=== PATIENT | female | born 1995 | race African-American/Black ===

== ENCOUNTER 2019-01-05 11:57 | Outpatient (CLI) | payer OTHER ==
[~2019-01-05] VITALS: Ht 165.1 cm; Wt 93.2 kg
[2019-01-05 12:11] VITALS: BP 132/63
[2019-01-05] MEDS ORDERED: MAPA500T2 PO (12:21)
[2019-01-05] MEDS ORDERED: ACETAMINOPHEN 325 MG/10.15 ML UDC PO ONE (12:45)
[2019-01-05 13:22] LABS: APPEARANCE, URINE CLEAR (CLEAR); BACTERIA, URINE AUTO 1+ (NEGATIVE); BILIRUBIN, URINE AUTO NEGATIVE (NEGATIVE); BLOOD, URINE BLOOD NEGATIVE (NEGATIVE); COLOR, URINE YELLOW (YELLOW); GLUCOSE, URINE (UA) AUTO 1+ mg/dL (NEGATIVE); KETONE, URINE AUTO 2+ mg/dL (NEGATIVE); LEUKOCYTE ESTERASE, URINE AUTO NEGATIVE (NEGATIVE); MUCUS, URINE SMALL (NEGATIVE); NITRITE, URINE AUTO NEGATIVE (NEGATIVE); PROTEIN, URINE AUTO NEGATIVE (NEGATIVE); RBC, URINE AUTO 1 /HPF (0-3); SPECIFIC GRAVITY URINE AUTO 1.009 (1.002-1.035); SQUAMOUS EPITHELIAL CELL UR AU 6 /HPF (0-6); WBC, URINE AUTO 2 /HPF (0-3)
[2019-01-05] MEDS ORDERED: LACTATED RINGER'S 1000 ML IV STA (14:11)
[2019-01-05 14:44] VITALS: BP 118/56
[2019-01-05 16:00] VITALS: BP 121/57
--- NOTE | 2019-01-05 17:18 | IPNPDOC ---
Obstetrical Progress Note Date of Service Jan 05, 2019 Subjective 23yo at 22+5 weeks presents to LND triage c/o JORDAN, back pain, and emesis. Pt reports that she was seen in clinic yesterday for similar symptoms and was told to come to LND if symptom persisted today. Pt reports +FM, denies LOF/VB/CTX. Pt denies dysuria, abnormal vaginal discharge. Pt states that back pain started four days ago and is primarily in lower back. She denies CVA tenderness. Pt states that her JORDAN started yesterday, went away, but has now been constant today. She states that she drinks "a lot of water" and feels as if she is adequately hydrated. Her urine in the clinic yesterday was orange with 3+ ketones, which was indicative of dehydration. Pt states she tried to take tylenol last night, but gagged when she tried to swallow them and had an episode of emesis. She denies any other nausea or episodes of emesis. Pt denies visual changes or RUQ pain. Objective Vital Signs Date Time Temp Pulse Resp B/P (MAP) Pulse Ox O2 Delivery O2 Flow Rate FiO2 01/05/19 14:44 99 118/56 (76) 01/05/19 12:11 97.3 20 99 Tocometer Contractions: No Assessment and Plan Additional Comments O: VSS, BP WNL FHR 160s, reduced to 150s after 1L hydration, WNL No CTX present UA: 2+ ketones, trace leukocytes UC: pending *Pt received 1L LR IVF and 650mg Tylenol (liquid) A: Dehydration Pt felt better and JORDAN resolved with tylenol and hydration Reassuring status P: Discussed normal discomorts of and encouraged pt to use maternity belt to help with back pain. Tylenol PRN; can use children's liquid tylenol if she cannot tolerate tabs Encouraged hydration of 3-4 liters of water/day PTL/danger/return precautions reviewed ANGEL JACOBO CNM Jan 05, 2019 17:18
== END 2019-01-05 16:30 | disposition home or self-care (01) ==
LOC: M LDO 11:57
PROVIDERS: ATTEND Registered Nurse Maternal Newborn
DX: O26.892 Other specified pregnancy related conditions, second trimester (principal); R51 Headache; M54.9 Dorsalgia, unspecified; O99.282 Endocrine, nutritional and metabolic diseases complicating pregnancy, second trimester; E86.0 Dehydration; O21.2 Late vomiting of pregnancy; Z3A.22 22 weeks gestation of pregnancy
CPT/HCPCS: 81001; 87086; G0378; G0463

== ENCOUNTER 2019-05-14 13:47 | Inpatient (IN) | payer OTHER ==
[~2019-05-14] VITALS: Ht 165.1 cm; Wt 107.0 kg
[2019-05-14] VITALS (7 sets, daily range): BP systolic 126–167; BP diastolic 60–98
[~2019-05-14 13:47] MED LIST: MAPA500T2 PO
[2019-05-14] MEDS: LR 1,000 ML IV SCH ×2 (13:51→21:51)
[2019-05-14] MEDS ORDERED: PRENTAB9 PO (14:22)
[2019-05-14] MEDS ORDERED: FERR325T3 PO (14:22)
[2019-05-14 15:05] LABS: BASO % 0.2 % (0.0-1.0); EOS % 0.2 % (0.0-3.0); HEMATOCRIT 31.2 % (36.0-47.0); HEMOGLOBIN 10.2 g/dl (12.0-15.5); LYMPH # 1.8 10^3/uL (1.5-5.0); LYMPH % 18.3 % (24.0-44.0); MEAN CORPUSCULAR HEMOGLOBIN 24.9 pg (27.0-33.0); MEAN CORPUSCULAR HGB CONC 32.7 g/dl (32.0-36.5); MEAN CORPUSCULAR VOLUME 76.1 fl (80.0-96.0); MONO # 0.6 10^3/uL (0.0-0.8); MONO % 6.2 % (0.0-5.0); NEUTROPHILS % 73.7 % (36.0-66.0); PLATELET COUNT, AUTOMATED 133 10^3/uL (150-450); WHITE BLOOD COUNT 9.5 10^3/uL (4.0-10.0)
--- NOTE | 2019-05-14 15:45 | HPEPDOC ---
Obstetrical History & Physical General Date of Admission May 14, 2019 at 13:47 History of Present Illness patient is a 24 yo G1 @ 41+1wks gestation presents for IOL for pending post vanessa es. patient without concerns. Information Provided By: Patient Age: 24 : 1 Care Care: Good Care Dating Final EDC: May 06, 2019 Final EDC by: LMP Past Medical History Past Obstetrical History : Past Obstetrical History: Primgravida Past Medical History Surgical History: Denies/None Family History Significant Family History: No pertinent family hx Social History Marital Status: * Smoker: non-smoker Alcohol: Denies Drugs: denies Allergies Coded Allergies: aspirin (Verified Allergy, Intermediate, LEFT EYE SWELLING, 01/05/19) citric acid (Verified Allergy, Intermediate, LEFT EYE SWELLING, 01/05/19) ibuprofen (Verified Allergy, Intermediate, LEFT SWOLLEN EYE, 01/05/19) sodium bicarbonate (Verified Allergy, Intermediate, LEFT EYE SWELLING, 01/05/19) Medications Scheduled Ferrous Sulfate (Ferrous Sulfate) 325 Mg Tablet.dr, 325 MG PO TID No.137/Iron/Folic Acd ( Vitamin Tablet) 1 Each Tablet, 1 TAB PO DAILY Physical Examination Physical Examination GENERAL: Alert and oriented times three. BREAST: . ABDOMEN: Gravid and non-tender to touch. FETUS: Is vertex (VTX) by sterile vaginal examination (SVE), fetus is vertex (VTX) by Flor. HEART RATE: Regular rate and rhythm. LUNGS: Clear to auscultation (CTA). EXTREMITIES: No edema/erythema/tenderness efw: 3600gm by flor Vital Signs/I&O Vital Signs Date Time Temp Pulse Resp B/P (MAP) Pulse Ox O2 Delivery O2 Flow Rate FiO2 05/14/19 14:13 97.5 115 18 137/72 (93) Laboratory Data 24H LABS Laboratory Tests 2 05/14/19 14:00: Serology Scanned Report Hepatitis B Testing Pertinent Laboratoy Data Blood Type: A+ RBC Antibody Screen: Negative HIV: Negative Hepatitis B: Negative Rapid Plasma Reagin: Nonreactive Rubella: Immune Chlamydia/Gonorrhea: Negative Group B Streptococcus: Positive Anatomy Ultrasound Placenta Location: Anterior Normal Anatomy: Yes Placenta Previa: No Vaginal Examination Dilation: 1cm Effacement: 50% Station: -1 Cervical Consistency: Medium Cervical Position: Middle Presentation: Cephalic presentation Position: Vertex (occiput) Assessment Heart Rate (FHR): 145 Variability: Moderate Accelerations: Positive Decelerations: None Tocometer Contractions: Yes Frequency: regular (patient not feeling her contractions) Assessment/Plan Assessment patient is a 24 yo G1 @ 41+1wks gestation. Counseled patient on different methods of cervical ripening and and induction of labor with stanley bul b/oxytocin/arom as indicated. Discussed external monitoring and internal monitoring as needed. Use of IV antibiotics for s/s of infection. Risk of bleeding requiring blood transfusion and associated risk of blood transfusion discussed. Risk of emergency delivery discussed. Possible need for use of vacuum and forceps as well as episiotomy discussed. Plan Admit and orient. Resident Care Associate and consent. Diet: regular prior to starting pit Group B Streptococcus (GBS) Positive, start pit in active labor Labs and intravenous (IV) per unit protocol. Counseled on Pitocin and induction of labor (IOL). stanley bulb placed with 60cc cervical side. Anticipate [normal spontaneous delivery ()]. C-S as appropriate. CARMEN PERKINS DO May 14, 2019 14:28
[2019-05-15] VITALS (44 sets, daily range): BP systolic 90–148; BP diastolic 52–93
[2019-05-15] MEDS: miSOPROStol 25 MCG 1/4 TAB (S0191) SL SCH ×2 (01:30→05:30)
[2019-05-15] MEDS ORDERED: PENICILLIN G POTASSIUM IV 5 MU in D5W MINI-BAG PLUS 100 ML IV ONE (03:45)
[2019-05-15] MEDS ORDERED: FENTANYL 2MCG/ML ROPIVACAINE 0.2% IN 0.9% NACL 100ML IVBAG As Ordered ONE (03:48)
[2019-05-15] MEDS ORDERED: LACTATED RINGER'S 1000 ML IV PRN (05:12)
[2019-05-15] MEDS ORDERED: EPIDURAL COMMENT XX SCH (05:12)
[2019-05-15] MEDS ORDERED: ePHEDrine SULFATE 25 MG/5 ML(5MG/ML) SYRINGE IV PRN (05:12)
[2019-05-15] MEDS ORDERED: EPIDURAL/PCA KEYS XX PRN (05:12)
[2019-05-15] MEDS: FENTANYL/ROPIVACAINE/NACL BAG 100 ML EPIDURAL SCH ×2 (05:12→15:03)
[2019-05-15] MEDS ORDERED: REFRIGERATOR IV KEYS XX PRN (05:12)
[2019-05-15] MEDS ORDERED: ONDANSETRON 4MG/2ML VIAL (J2405) IV PRN (05:12)
[2019-05-15] MEDS ORDERED: NALOXONE INJ 0.4 MG/1 ML VIAL (J2310) IV PRN (05:12)
[2019-05-15] MEDS ORDERED: diphenhydrAMINE INJ 50MG/ML VIAL (J1200) IV PRN (05:12)
[2019-05-15] MEDS: LR 1,000 ML IV SCH ×4 (05:51→21:32)
[2019-05-15] MEDS ORDERED: OXYTOCIN DRIP 30 UNITS in IV 1 EA IV SCH (06:45)
[2019-05-15] MEDS: PENICILLIN G POTASSIUM IV 2.5 MU in IV 1 EA IV SCH ×4 (07:51→20:19)
--- NOTE | 2019-05-15 19:32 | IPNPDOC ---
Text Note Date of Service The patient was seen on 05/15/19. NOTE Intrapartum Note Codey is a 24yo with SIUP at 41w2d undergoing IOL for LTG. Induction was started with stanley bulb. She has progressed with pitocin augmentation. She had SROM, mec stained fluid at 0317. At last check by NAVARRO Hobson around 1700, patient had some cervical swelling because the patient did not have good pain control and was bearing down uncontrollably. Patient is now much more comfortable with epidural bolus. She is receiving PCN for GBS pos status. Vitals wnl, afebrile SCE: 6/80/-2, mec stained fluid. IUPC placed. Will continue to closely monitor Plan to continue to titrate pitocin up per protocol for adequate MVUs Will recheck in 2-4hr or earlier as indicated Safe to proceed Dr. Shelbie Elizabeth MD VS,Art, I+O VS, Art, I+O Vital Signs Date Time Temp Pulse Resp B/P (MAP) Pulse Ox O2 Delivery O2 Flow Rate FiO2 05/15/19 18:18 116 20 118/58 (78) 05/15/19 17:25 98.9 Shelbie Elizabeth MD May 15, 2019 19:32
[2019-05-15] MEDS ORDERED: ceFAZolin SOD 2 GM in IV 1 EA IV ONE (23:15)
[2019-05-15] MEDS ORDERED: AZITHROMYCIN INJ 500 MG, VIAL MATE ADAPTER 1 EACH in D5W 250 ML IV ONE (23:15)
--- NOTE | 2019-05-15 23:17 | IPNPDOC ---
Text Note Date of Service The patient was seen on 05/15/19. NOTE Decision for Codey is comfortable with epidural, has been intermittently sleeping. Vitals wnl, afebrile MVUs have been adequate. SCE by SYDIN Holbrook unchanged /-2, with caput noted through the cervix and cervical swelling This now represents no further cervical dilation for >6 hours which gives a diagnosis of arrest of dilation I discussed dx with the patient and my recommendation for section which she is amenable to. Discussed r/b/a with patient and consent forms signed. Nursing team and anesthesia physician aware Will repeat CBC since last was done on 05/14 when she was admitted 2g IV anceph and 500mg IV azithromycin x1 Will proceed to OR when CBC resulted and OR ready Dr. Shelbie Elizabeth MD VS,Art, I+O VS, Art, I+O Vital Signs Date Time Temp Pulse Resp B/P (MAP) Pulse Ox O2 Delivery O2 Flow Rate FiO2 05/15/19 22:23 97.8 05/15/19 22:00 83 117/56 (76) 05/15/19 18:18 20 Shelbie Elizabeth MD May 15, 2019 23:17
[2019-05-15] MEDS ORDERED: OXYTOCIN 30 UNITS IN 0.9% NaCl 500ML IV BAG (J2590) As Ordered ONE (23:23)
[2019-05-15] MEDS ORDERED: LIDOCAINE PRES-FREE 2% 10ML AMP As Ordered ONE (23:24)
[2019-05-15 23:27] LABS: HEMATOCRIT 31.1 % (36.0-47.0); HEMOGLOBIN 9.9 g/dl (12.0-15.5); MEAN CORPUSCULAR HEMOGLOBIN 24.5 pg (27.0-33.0); MEAN CORPUSCULAR HGB CONC 31.8 g/dl (32.0-36.5); PLATELET COUNT, AUTOMATED 116 10^3/uL (150-450); RED BLOOD COUNT 4.04 10^6/uL (4.00-5.40); WHITE BLOOD COUNT 16.9 10^3/uL (4.0-10.0)
[2019-05-15] MEDS ORDERED: dexameTHASONE 4 MG/ML 1ML VIAL (J1100) As Ordered ONE (23:58)
[2019-05-16] VITALS (7 sets, daily range): BP systolic 123–157; BP diastolic 58–80
[2019-05-16] MEDS ORDERED: ONDANSETRON 4MG/2ML VIAL (J2405) As Ordered ONE (00:04)
[2019-05-16] MEDS ORDERED: MORPHINE PRES-FREE INJ 10 MG/10 ML VIAL (J2274) As Ordered ONE (00:04)
[2019-05-16] MEDS ORDERED: fentaNYL 100 MCG/2 ML INJECTION (J3010) As Ordered ONE ×2 (00:25→01:43)
[2019-05-16] MEDS ORDERED: PROPOFOL 200 MG/20 ML VIAL As Ordered ONE ×3 (00:36→01:06)
[2019-05-16] MEDS ORDERED: LR 1,000 ML IV SCH (01:24)
[2019-05-16] MEDS ORDERED: ACETAMINOPHEN 1000MG 100ML IV BTL (OFIRMEV) (J0131 PER 10MG) As Ordered ONE (01:26)
[2019-05-16] MEDS ORDERED: PERCOCET 5MG/325MG TAB PO PRN (01:30)
[2019-05-16] MEDS ORDERED: METHYLERGONOVINE MALEATE 0.2 MG/ML VIAL (J2210) IM ONE (01:30)
[2019-05-16] MEDS ORDERED: ONDANSETRON 4MG/2ML VIAL (J2405) IV PRN ×3 (01:30→01:45)
[2019-05-16] MEDS ORDERED: RHOGAM 300 MCG (1500 IU) INJ (J2790) IM SCH (01:30)
[2019-05-16] MEDS ORDERED: MEASLES,MUMPS,RUBELLA VACCINE INJ (MMR-II) (90707) SC SCH (01:30)
[2019-05-16] MEDS ORDERED: MORPHINE 2 MG/ML 1ML VIAL (J2270) IV PRN (01:30)
[2019-05-16] MEDS ORDERED: diphenhydrAMINE INJ 50MG/ML VIAL (J1200) IV PRN (01:45)
[2019-05-16] MEDS ORDERED: NALBUPHINE HCL 10 MG/ML AMP (J2300) IV PRN ×2 (01:45)
[2019-05-16] MEDS ORDERED: NALOXONE INJ 0.4 MG/1 ML VIAL (J2310) IV PRN ×2 (01:45)
[2019-05-16] MEDS ORDERED: METOCLOPRAMIDE INJ 10MG/2ML VIAL (J2765) IV PRN (01:45)
[2019-05-16] MEDS: fentaNYL 100 MCG/2 ML INJECTION (J3010) IV PRN ×4 (02:17→02:46)
--- NOTE | 2019-05-16 08:10 | IPNPDOC ---
Progress Note Date of Service: May 16, 2019 Day#: 0 Progress Note PPD 0 SUBJECT: Codey is a 24yo [id number] s/p uncomplicated PLTCS just after midnight on Dec for arrest of dilation while undergoing IOL for LTG at 41w2d, doing well day # 0. She has not yet ambulated secondary to late surgery, has stanley catheter in place draining clear yellow urine and has been tolerating clear liquids without nausea/vomiting. Breast feeding without issue. Reports lochia is like a normal period. She denies f/c/CP/SOB. OBJECTIVE: VITAL SIGNS: Within normal limits, afebrile. Alert and oriented times three. Abdomen: Fundus firm at U-1. Soft, appropriately tender to palpation with no rebound/guarding. Pfannenstiel incision has clean/dry dressing overlying. Extremities: no pain with palpation of calves UOP >50ml/hr Labs: pre-op H/H: 9.9/31.1 ASSESSMENT: Codey is a 24yo [id number] s/p uncomplicated PLTCS just after midnight on Dec for arrest of dilation while undergoing IOL for LTG at 41w2d, doing well day # 0. Vitals within normal limits, afebrile, hemod ynamically stable with no evidence of infection. PLAN: 1. Routine /post-op care 2. Percocet and prn IV morphine for pain since patient has ALLERGY TO MOTRIN. Colace for bowel regimen. 3. Regular diet 4. Stanley catheter to be removed 18hr post-op with 4hr due to void 5. Ok to shower today and take off outer bandage 6. SCDs while in bed, encourage use of IS 7. Encourage breast feeding and ambulation. Dr. Shelbie Elizabeth MD VS, I&O, 24H, [facility] Vital Signs/I&O Vital Signs Date Time Temp Pulse Resp B/P (MAP) Pulse Ox O2 Delivery O2 Flow Rate FiO2 05/16/19 07:09 20 Room Air 05/16/19 05:52 97.6 70 140/76 (97) 96 I&O- Last 24 Hours up to 6 AM 05/16/19 06:00 Intake Total 1400 ml Output Total 2300 ml Balance -900 ml Laboratory Data 24H LABS Laboratory Tests 2 05/15/19 23:19: Nucleated Red Blood Cells % (auto) 0.0 CBC/BMP Laboratory Tests 05/15/19 23:19 Shelbie Elizabeth MD May 16, 2019 08:10
[2019-05-16] MEDS: PRENATAL VITAMINS CHEWABLE TABLET PO SCH (09:26)
[2019-05-16] MEDS: DOCUSATE SODIUM 100 MG CAP PO SCH ×2 (09:26→20:07)
[2019-05-16] MEDS: PERCOCET 5MG/325MG TAB PO PRN ×2 (10:34→19:39)
[2019-05-17 02:00] VITALS: BP 133/74
[2019-05-17] MEDS: PERCOCET 5MG/325MG TAB PO PRN ×3 (05:50→17:42)
[2019-05-17 06:00] VITALS: BP 128/79
[2019-05-17 06:33] LABS: HEMATOCRIT 23.3 % (36.0-47.0); MEAN CORPUSCULAR HEMOGLOBIN 25.1 pg (27.0-33.0); MEAN CORPUSCULAR HGB CONC 32.6 g/dl (32.0-36.5); MEAN CORPUSCULAR VOLUME 76.9 fl (80.0-96.0); PLATELET COUNT, AUTOMATED 130 10^3/uL (150-450); RED BLOOD COUNT 3.03 10^6/uL (4.00-5.40); WHITE BLOOD COUNT 16.6 10^3/uL (4.0-10.0)
[2019-05-17 06:35] LABS: HEMOGLOBIN 7.6 g/dl (12.0-15.5)
--- NOTE | 2019-05-17 08:18 | IPNPDOC ---
Progress Note Date of Service: May 17, 2019 Day#: 1 Progress Note PPD 1 SUBJECT: Codey is a 24yo [id number] s/p uncomplicated PLTCS just after midnight on 25 Dec for arrest of dilation while undergoing IOL for LTG at 41w2d, doing well day # 1. She is ambulating without lig htheadedness/dizziness, has been voiding spontaneously without issue and has been tolerating regular diet without nausea/vomiting. She is not sure if she has had flatus yet. Pain is well controlled with percocet. Breast feeding without issue. Reports lochia is like a normal period. She denies f/c/CP/SOB. OBJECTIVE: VITAL SIGNS: Within normal limits, afebrile. Alert and oriented times three. Abdomen: Fundus firm at U-1. Soft, appropriately tender to palpation with no rebound/guarding. Pfannenstiel incision has steri strips overlying, no erythema/induration/drainage Extremities: no pain with palpation of calves Labs: pre-op H/H: 9.9/31.1 post-op H/H: 7.6/23.3 ASSESSMENT: Codey is a 24yo [id number] s/p uncomplicated PLTCS just after midnight on 25 Dec for arrest of dilation while undergoing IOL for LTG at 41w2d, doing well day # 1. Vitals within normal limits, afebrile, he modynamically stable with no evidence of infection. PLAN: 1. Routine /post-op care 2. Percocet and prn IV morphine for pain since patient has ALLERGY TO MOTRIN. Colace for bowel regimen. 3. Regular diet 4. SCDs while in bed, encourage use of IS 5. Encourage breast feeding and ambulation. Dr. Shelbie Elizabeth MD VS, I&O, 24H, [facility] Vital Signs/I&O Vital Signs Date Time Temp Pulse Resp B/P (MAP) Pulse Ox O2 Delivery O2 Flow Rate FiO2 05/17/19 06:35 20 05/17/19 06:00 97.9 101 128/79 (95) 99 Room Air I&O- Last 24 Hours up to 6 AM 05/17/19 06:00 Intake Total 3500 ml Output Total 5240 ml Balance -1740 ml Laboratory Data 24H LABS Laboratory Tests 2 05/17/19 06:07: Nucleated Red Blood Cells % (auto) 0.0 CBC/BMP Laboratory Tests 05/17/19 06:07 Shelbie Elizabeth MD May 17, 2019 08:18
[2019-05-17] MEDS: DOCUSATE SODIUM 100 MG CAP PO SCH ×2 (09:41→21:09)
[2019-05-17] MEDS: PRENATAL VITAMINS CHEWABLE TABLET PO SCH (09:41)
[2019-05-17 10:00] VITALS: BP 119/65
[2019-05-17 14:00] VITALS: BP 129/68
[2019-05-17 18:00] VITALS: BP 128/82
[2019-05-17 22:00] VITALS: BP 125/71
[2019-05-18] MEDS: PERCOCET 5MG/325MG TAB PO PRN ×2 (05:05→11:47)
--- NOTE | 2019-05-18 05:45 | IPNPDOC ---
Progress Note Date of Service: May 18, 2019 Day#: 2 Progress Note POD 2 SUBJECT: Codey is a 24yo [id number] s/p uncomplicated PLTCS just after midnight on 25 Dec for arrest of dilation while undergoing IOL for LTG at 41w2d, doing well /post-op day # 2. She is ambulating without lightheadedness/dizziness, has been voiding spontaneously without issue and has been tolerating regular diet without nausea/vomiting. Pain is well controlled with percocet. Breast feeding without issue. Reports lochia is like a normal period. She denies f/c/CP/SOB. OBJECTIVE: VITAL SIGNS: Within normal limits, afebrile. Alert and oriented times three. Abdomen: Fundus firm at U-1. Soft, appropriately tender to palpation with no rebound/guarding. Pfannenstiel incision has steri strips overlying, no erythema/induration/drainage Extremities: no pain with palpation of calves Labs: pre-op H/H: 9.9/31.1 post-op H/H: 7.6/23.3 ASSESSMENT: Codey is a 24yo [id number] s/p uncomplicated PLTCS just after midnight on 25 Dec for arrest of dilation while undergoing IOL for LTG at 41w2d, doing well day # 2. Vitals within normal limits, afebrile, hemodynamically stable with no evidence of infection. PLAN: 1. Discharge to home 2. Patient instructed to have shrimp picker post-op meds from [place] this morning before discharge: percocet for pain and colace for bowel regimen. 3. Regular diet 4. No heavy lifting and vaginal rest for 6 weeks 5. Discussed return precautions: fevers/chills, signs of wound infection, increasing abdominal pain, pain/redness of breasts, depression, or anything else concerning 6. Post-op visit at [address] Elizabeth in [facility] Dr. Shelbie Elizabeth MD VS, I&O, 24H, [facility] Vital Signs/I&O Vital Signs Date Time Temp Pulse Resp B/P (MAP) Pulse Ox O2 Delivery O2 Flow Rate FiO2 05/18/19 05:05 18 05/17/19 22:00 97.9 93 125/71 (89) 98 Room Air I&O- Last 24 Hours up to 6 AM 05/18/19 06:00 Intake Total 1000 ml Balance 1000 ml Laboratory Data 24H LABS Laboratory Tests 2 05/17/19 06:07: Nucleated Red Blood Cells % (auto) 0.0 CBC/BMP Laboratory Tests 05/17/19 06:07 Shelbie Elizabeth MD May 18, 2019 05:44
[2019-05-18] MEDS ORDERED: DOCU100C16 PO (05:47)
[2019-05-18] MEDS ORDERED: PERCOCET PO (05:47)
--- NOTE | 2019-05-18 05:50 | DS.PDOC ---
Discharge Summary General Date of Admission May 14, 2019 at 13:47 Date of Discharge May 18, 2019 Attending Physician: Shelbie Elizabeth MD Discharge Summary PROCEDURES PERFORMED DURING STAY: primary low transverse section ADMITTING DIAGNOSES: 1. induction of labor for late term gestation DISCHARGE DIAGNOSES: 1. induction of labor for late term gestation 2. arrest of dilation COMPLICATIONS/CHIEF COMPLAINT: Induction. HISTORY OF PRESENT ILLNESS/HOSPITAL COURSE: Codey is a 24yo [id number] s/p uncomplicated PLTCS just after midnight on Apr for arrest of dilation while undergoing IOL for LTG at 41w2d. She had a benign course. At time of discharge, her vitals were within normal limits, she was afebrile, hemodynamically stable with no evidence of infection. DISCHARGE MEDICATIONS: Please see below. ALLERGIES: Please see below. PHYSICAL EXAMINATION ON DISCHARGE: VITAL SIGNS: Within normal limits, afebrile. Alert and oriented times three. Abdomen: Fundus firm at U-1. Soft, appropriately tender to palpation with no rebound/guarding. Pfannenstiel incision has steri strips overlying, no erythema/induration/drainage Extremities: no pain with palpation of calves LABORATORY DATA: Please see below. pre-op H/H: 9.9/31.1 post-op H/H: 7.6/23.3 DIET: regular DISPOSITION: Home DISCHARGE INSTRUCTIONS/PLAN: 1. Discharge to home 2. Patient instructed to have peanut picker post-op meds from [place] this morning before discharge: percocet for pain and colace for bowel regimen. 3. Regular diet 4. No heavy lifting and vaginal rest for 6 weeks 5. Discussed return precautions: fevers/chills, signs of wound infection, increasing abdominal pain, pain/redness of breasts, depression, or anything else concerning 6. Post-op visit at [address] Elizabeth in [facility] DISCHARGE CONDITION: Stable TIME SPENT ON DISCHARGE: Greater than [address] Shelbie Elizabeth MD Vital Signs/I&Os Vital Signs Date Time Temp Pulse Resp B/P (MAP) Pulse Ox O2 Delivery O2 Flow Rate FiO2 05/18/19 05:05 18 05/17/19 22:00 97.9 93 125/71 (89) 98 Room Air I&O- Last 24 Hours up to 6 AM 05/18/19 06:00 Intake Total 1000 ml Balance 1000 ml Laboratory Data Labs 24H Laboratory Tests 2 05/17/19 06:07: Nucleated Red Blood Cells % (auto) 0.0 CBC/BMP Laboratory Tests 05/17/19 06:07 Discharge Medications Scheduled Docusate Sodium (Docusate Sodium) 100 Mg Capsule, 100 MG PO BID Ferrous Sulfate (Ferrous Sulfate) 325 Mg Tablet.dr, 325 MG PO TID, (Reported) No.137/Iron/Folic Acd ( Vitamin Tablet) 1 Each Tablet, 1 TAB PO DAILY, (Reported) Scheduled PRN Oxycodone/Acetaminophen (Oxycodone-Acetaminophen 5-325) 1 Each Tablet, 2 TAB PO Q6H PRN for SEVERE PAIN (PS 8-10) Allergies Coded Allergies: aspirin (Verified Allergy, Intermediate, LEFT EYE SWELLING, 01/05/19) citric acid (Verified Allergy, Intermediate, LEFT EYE SWELLING, 01/05/19) ibuprofen (Verified Allergy, Intermediate, LEFT SWOLLEN EYE, 01/05/19) sodium bicarbonate (Verified Allergy, Intermediate, LEFT EYE SWELLING, 01/05/19) Shelbie Elizabeth MD May 18, 2019 05:50
[2019-05-18 05:59] VITALS: BP 130/79
[2019-05-18] MEDS: PRENATAL VITAMINS CHEWABLE TABLET PO SCH (08:14)
[2019-05-18] MEDS: DOCUSATE SODIUM 100 MG CAP PO SCH (08:14)
--- NOTE | 2019-05-18 21:19 | RO ---
DATE OF PROCEDURE: 05/16/2019 INDICATION FOR OPERATION: Codey is a 24-year-old G1, now P1-0-0-1 who was admitted for induction of labor for late term gestation at 41 weeks. She underwent induction and proceeded to 6 cm where she then experience an arrest of dilatation over 6 hours. PREPROCEDURE DIAGNOSIS: Induction of labor for late term gestation. POSTPROCEDURE DIAGNOSIS: Induction of labor for late term gestation, also arrest of dilatation. OPERATIVE PROCEDURE: Primary low transverse section. SURGEON: Shelbie Elizabeth MD RV TECHNICIAN: Dr. Boyd. Director Of Construction's role with exposure/retraction, assisted with delivery of the baby and subsequently closure of tissue layers. CLINICAL SERVICE: Obstetrics. ANESTHESIA: MATERIAL FORWARDED TO THE LAB FOR EXAMINATION: None. DESCRIPTION OF FINDINGS: Male infant in occupational therapy (OT) position. Apgars eight and nine. Weight 4000 grams or 8 pounds 13 ounces. Normal appearing uterus, fallopian tubes and ovaries. INFECTION CLASSIFICATION: 2 ESTIMATED BLOOD LOSS: 700 mL IV FLUIDS: 1500 mL. URINE OUTPUT: 450 mL of clear yellow urine. DESCRIPTION OF PROCEDURE: After obtaining informed consent, Codey was taken to the operating room. She previously had epidural placed and so had a Eid catheter already. Bilateral sequential compression devices were placed. She was prepped and draped in normal sterile fashion in the dorsal supine position with a left lateral tilt. Time-out was performed to confirm patient name, date of , procedure and indication and the team was in agreement. She received 2 grams of IV Ancef prophylactically as well as 500 mg of IV azithromycin. Epidural anesthesia was found to be adequate using an Allis clamp, Pfannenstiel skin incision was made with a scalpel and carried through to the underlying layer of fascia. The fascia was incised in the midline and the incision was extended laterally with Wagner scissors. Superior and inferior aspects of the fascial incision were grasped with Lior clamps, elevated and the underlying rectus muscles were dissected off bluntly and sharply. Peritoneum was entered digitally and the rectus muscles were in the midline. Peritoneal incision was extended superiorly and inferiorly with good visualization of the bladder. Bladder blade was inserted and the vesicouterine peritoneum was identified, grasped with pickups and entered sharply with Metzenbaum scissors. Incision was extended laterally and the bladder flap was created digitally. Bladder blade was reinserted and the lower uterine segment was scored in a transverse fashion with a scalpel. Uterus was entered bluntly and the incision was extended with traction. Bladder blade was removed and infant's head was elevated to the level of the incision. Fundal pressure was applied. The head was delivered atraumatically in the OT position. The anterior shoulder, posterior shoulder and corpus were delivered without difficulty. Nose and mouth were suctioned with bulb suctioning and cord was clamped times two and cut. Notably there was meconium present and there was also terminal meconium noted. The infant was handed off to the awaiting sewage disposal engineer. Placenta was removed with traction on the umbilical cord and uterine massage and the uterus was then exteriorized and cleared of all clot and debris. Uterine incision was repaired with #0 Vicryl suture in a running locking fashion. A second layer of #0 Monocryl was used to close the hysterotomy incision in imbricating fashion. The uterine incision was inspected and hemostasis was noted. Posterior cul-de-sac was irrigated and uterus returned to the abdomen. Gutters were cleared of all clots and hemostasis was noted. Peritoneum was closed using #3-0 Vicryl suture in a running fashion. Fascia was reapproximated with #0 Vicryl suture in a running fashion. Subcutaneous tissue was irrigated copiously. Ana Maria's fascia was reapproximated using #3-0 Vicryl suture in a running fashion. The skin edges were reapproximated using three inverted interrupted stitches using #3-0 Vicryl suture followed by a running subcuticular stitch using #4-0 Monocryl suture. The incision was cleaned and dried. Steri-Strips were applied in the usual fashion perpendicular to the Pfannenstiel incision. Telfa was layered on top and a pressure dressing was applied over the entire surgical incision. The vagina was cleared of all blood clot without active bleeding noted. Fundus was firm at umbilicus. All counts were correct times two. The patient tolerated the procedure well. There were no complications. The patient was taken to the recovery room on labor and delivery in stable condition.
== END 2019-05-18 13:53 | disposition home or self-care (01) | DRG 773 ==
LOC: M LDI 13:47 → M OBS 05-16 03:32
PROVIDERS: ADMIT Obstetrics & Gynecology; ATTEND Obstetrics & Gynecology
PROC: 3E033VJ Introduction of Other Hormone into Peripheral Vein, Percutaneous Approach (ICD-10-PCS; 2019-05-14)
PROC: 10D00Z1 Extraction of Products of Conception, Low, Open Approach (ICD-10-PCS; principal; 2019-05-16 00:10)
DX: O48.0 Post-term pregnancy (principal); Z37.0 Single live birth; Z3A.41 41 weeks gestation of pregnancy; Z79.82 Long term (current) use of aspirin; Z79.899 Other long term (current) drug therapy; Z88.8 Allergy status to other drugs, medicaments and biological substances; O99.824 Streptococcus B carrier state complicating childbirth; O77.0 Labor and delivery complicated by meconium in amniotic fluid; O62.0 Primary inadequate contractions